=== PATIENT | female | born 1985 | race Caucasian/White ===

== ENCOUNTER → 2022-06-02 | Outpatient (CLI) | payer BC ==
[~2022-06-02] MED LIST: ACHYD1T PO; BIRTH CONTROL PO; DCS100C PO; HYDR118S10 PO; HYDR1TAB8 OP; IBP800T PO; OXYC1TAB12 PO; PREN-115 PO; micronor PO
--- NOTE | 2022-06-03 11:38 | Diagnostic Imaging Report ---
Indication: Routine screening. Comparison is made with prior mammogram from 06/20/2013. 2-D and 3-D bilateral screening mammography was performed with CAD. Scattered fibroglandular densities are identified bilaterally. No discrete mass or malignant-appearing microcalcifications are identified. Axillae are unremarkable. IMPRESSION: BI-RADS Category 1 No mammographic features suspicious for malignancy are identified. ACR BI-RADS Category 1: Negative. Result letter will be mailed to the patient. Note: At least 10% of breast cancer is not imaged by mammography. Dictated by: Dictated on workstation # [id number]
== END ==
LOC: RAD 15:30
PROVIDERS: ATTEND Internal Medicine
DX: Z12.31 Encounter for screening mammogram for malignant neoplasm of breast (principal)
CPT/HCPCS: 77063; 77067